=== PATIENT | male | born 1970 | race Caucasian/White ===

== ENCOUNTER → 2016-10-17 | Day surgery (SDC) | payer BC ==
[~2016-10-17] MED LIST: BUPIVACAINE/EPINEPHRINE 0.25% PF 30 ML VIAL ONE; LACTATED RINGER'S 1000 ML INJ 1,000 ML ONE; LIDOCAINE 1%/EPINEPHrine 1:100,000 SOLN 20 ML VIAL ONE; MIDAZOLAM HCL 2 MG/2 ML VIAL ONE; PROPOFOL 100 MG/10 ML INJ IV ONE; PROPOFOL 500 MG/50 ML BTL IV ONE; ceFAZolin INJ 1,000 MG VIAL ONE
--- NOTE | 2016-10-17 14:43 | TN ---
cc: SADE MCCARTY DATE OF SURGERY: 10/17/2016. PREOPERATIVE DIAGNOSIS: Right carpal tunnel syndrome POSTOPERATIVE DIAGNOSIS: Right carpal tunnel syndrome. PROCEDURE PERFORMED: Open right carpal tunnel release SURGEON: Sade Mccarty MD. ANESTHESIA: TIVA. ESTIMATED BLOOD LOSS: Minimal. INDICATIONS FOR THE PROCEDURE: This is a 46-year-old male with EMG showing evidence of carpal tunnel syndrome and clinical exam matching. The patient presents for surgical treatment. OPERATIVE PROCEDURE PERFORMED: The patient was brought to the operating and given limited sedation. The right arm was scrubbed alcohol followed by Hibiclens followed Chloraprep and draped sterilely. Antibiotics were given within one hour time window. A time-out was done. After exsanguination, the tourniquet was inflated to 250 mmHg. A longitudinal incision was made in line with the flexed fourth ray. The palmar fascia was opened longitudinally. The transverse carpal ligament was opened in line with the incision. The flexor retinaculum was opened to the proximal crease. The median nerve was opened extending into the palm. The recurrent branch was identified and protected. The tourniquet was let down. Hemostasis was controlled with the bipolar cautery. The wound was irrigated and anesthetized and closed with 3-0 nylon in a mattress fashion. A sterile dressing was applied and the patient was awakened and taken to recovery in satisfactory condition. Sade Mccarty MD [facility] – [place] /2:22 PM /2:41 PM
== END | disposition home or self-care (01) ==
LOC: ESDC 12:35
PROVIDERS: ATTEND Orthopaedic Surgery Orthopaedic Surgery of the Spine
DX: G56.01 Carpal tunnel syndrome, right upper limb (principal)
CPT/HCPCS: 01810; 64721; J0690; J2250; J3010; J7120

== ENCOUNTER → 2016-11-21 | Day surgery (SDC) | payer BC ==
[~2016-11-21] MED LIST changes: +BUPIVACAINE/EPINEPHRINE 0.25% PF 10 ML VIAL ONE; -BUPIVACAINE/EPINEPHRINE 0.25% PF 30 ML VIAL ONE; -LIDOCAINE 1%/EPINEPHrine 1:100,000 SOLN 20 ML VIAL ONE; -PROPOFOL 100 MG/10 ML INJ IV ONE
--- NOTE | 2016-11-21 16:19 | TN ---
cc: SADE MCCARTY DATE OF SURGERY: 11/21/2016. PREOPERATIVE DIAGNOSIS: Left carpal tunnel syndrome. POSTOPERATIVE DIAGNOSIS: Left carpal tunnel syndrome. PROCEDURE: Open left carpal tunnel release. SURGEON: Sade Mccarty MD. ANESTHESIA: TIVA. ESTIMATED BLOOD LOSS: Minimal. INDICATIONS: This patient is a 46-year-old male with significant left hand pain. Investigative studies show evidence of left carpal tunnel syndrome borne out on electrical studies. He presents now for surgical treatment. DESCRIPTION OF THE PROCEDURE IN DETAIL: The patient was brought to the operating room and anesthetized with limited sedation. The left arm was scrubbed with alcohol followed by Hibiclens followed Chloraprep and draped sterilely. Antibiotics were given within a one hour time window. A time-out was done. A field block was used with local anesthesia. After exsanguination, the tourniquet was inflated tourniquet to 250 mmHg. An incision was made in line with the flexed fourth ray. The flexor retinaculum was opened longitudinally. The transverse carpal ligament was opened. The median nerve was identified and protected. The recurrent branch was protected. The flexor retinaculum was opened as well as the transverse carpal ligament. The nerve was followed into the palm and completely opened. There was no compression upon the nerve at that time. The tourniquet was let down. Hemostasis was controlled with bipolar cautery. The wound was irrigated, anesthetized and closed with 3-0 nylon in a mattress fashion. A sterile dressing was applied. The patient was awakened and taken to the recovery room in satisfactory condition. Sade Mccarty [place] [facility] [place] /4:00 PM /4:04 PM
== END | disposition home or self-care (01) ==
LOC: EDUNIT# 12:30 → ESDC 12:54
PROVIDERS: ATTEND Orthopaedic Surgery Orthopaedic Surgery of the Spine
DX: G56.02 Carpal tunnel syndrome, left upper limb (principal)
CPT/HCPCS: 01810; 64721; J0690; J2250; J3010; J7120